=== PATIENT | male | born 1985 | race Caucasian/White ===

== ENCOUNTER 2019-12-02 09:44 | Emergency (ER) | payer BC ==
--- NOTE | 2019-12-02 09:59 | ED ---
Syncope/Near Syncope - HPI Summary HPI Summary: 34-year-old male with a significant past medical history of gastric sleeve presents to emergency department today complaining of a witnessed syncopal episode this morning. Patient states he was sitting in a meeting at work when he stood up to go the bathroom and felt lightheaded and "sweaty" and then syncopized. Patient states he recalls the event but endorses loss of consciousness. Patient fell from standing and sustained a 2 cm laceration superior to the orbit while falling After hitting it on a chalkboard. Patient currently feels well and denies any headache, neck pain, changes in vision, neurological deficit, chest pain, abdominal pain, pain with urination, feelings of anxiety. Patient endorses having "a few drinks last night" but denies recreational drug use or smoking. Family history and social history noncontributory. Bystanders state patient returned to normal mental state approximately 10 minutes after waking. Patient denies incontinence or tongue biting. 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 Onset/Duration: Sudden Onset Context: Witnessed Activity At Onset: Exertion Associated Head Trauma: Yes Alleviating Factor(s): Spontaneous Resolution Associated Signs And Symptoms: Head Trauma (Recent), Headache - Allergies/Home Medications Allergies/Adverse Reactions: Allergies Allergy/AdvReac Type Severity Reaction Status Date / Time No Known Allergies Allergy Verified 12/02/19 09:57 Home Medications: Home Medications Omeprazole 20 mg PO DAILY 12/02/19 [History Confirmed 12/02/19] PMH/Surg Hx/FS Hx/Imm Hx Endocrine/Hematology History: Denies: Hx Anticoagulant Therapy Cardiovascular History: Reports: Hx Syncope Denies: Hx Pacemaker/ICD History: Denies: Hx Chronic Renal Failure, Hx Dialysis Infectious Disease History: No Infectious Disease History: Denies: Traveled Outside the [place] in Last 30 Days Review of Systems Constitutional: Negative Eyes: Negative ENT: Negative Cardiovascular: Negative Respiratory: Negative Gastrointestinal: Negative Genitourinary: Negative Musculoskeletal: Negative Negative: Decreased ROM Skin: Negative Positive: Headache - 2/10, Syncope Psychological: Normal All Other Systems Reviewed And Are Negative: Yes Physical Exam Triage Information Reviewed: Yes Vital Signs On Initial Exam: Initial Vitals Temp Pulse Resp BP Pulse Ox 98.6 F 89 15 118/78 98 12/02/19 09:53 12/02/19 09:53 12/02/19 09:53 12/02/19 09:53 12/02/19 09:53 Vital Signs Reviewed: Yes Appearance: Positive: Well-Appearing, No Pain Distress, Well-Nourished Skin: Positive: Warm, Skin Color Reflects Adequate Perfusion Eyes: Positive: EOMI, LEXII ENT: Positive: Hearing grossly normal Respiratory/Lung Sounds: Positive: Clear to Auscultation, Breath Sounds Present Cardiovascular: Positive: RRR, S1, S2 Abdomen Description: Positive: Soft Bowel Sounds: Positive: Present Musculoskeletal: Positive: Strength/ROM Intact Neurological: Positive: Sensory/Motor Intact, Alert, Oriented to Person Place, Time, Normal Gait, Finger to Nose, Facial Symmetry, Speech Normal. Negative: Cerebellar Dysfunction, Pronator Drift Present Psychiatric: Positive: Normal AVPU Assessment: Alert Procedures - Sedation Patient Received Moderate/Deep Sedation with Procedure: No - Laceration/Wound Repair 1 Location: face Description: Linear Betadine Prep?: No Laceration/Wound Explored: clean, no foreign body removed Closure: Skin Adhesive, SteriStrips Debridement: none Layer Closure?: No Sterile Dressing Applied?: No Diagnostics - Vital Signs Vital Signs Temp Pulse Resp BP Pulse Ox 12/02/19 09:53 98.6 F 89 15 118/78 98 - Laboratory Result Diagrams: 12/02/19 10:20 12/02/19 10:20 Lab Statement: Any lab studies that have been ordered have been reviewed, and results considered in the medical decision making process. Course/Dx Course Of Treatment: Patient was evaluated in the emergency department today for syncopal episode. His vital signs are noted and stable. An EKG was done promptly which showed normal sinus rhythm at a rate of 91 bpm. No evidence of STEMI. Normal intervals, no evidence of WPW or Brugada. A bedside fingerstick glucose was 79 and the patient was given by mouth replacement with food. Patients 2 cm in length and 2 mm in depth laceration superior to his orbit was approximated after cleaning with 20 cc of normal saline and use of Dermabond skin glue and Steri-Strips. Laboratory studies returned unremarkable with no evidence of leukocytosis or anemia. Troponin is 0.00. Orthostatics were done which were within normal limits. Repeat blood glucose prior to discharge was 104. Patient had no evidence of seizure or other significant cause for his syncope. Likely causes syncope was hypoglycemia or vasovagal syncope. Patient is follow-up with his primary care provider for further evaluation and management. - Diagnoses Differential Diagnosis/HQI/PQRI: Positive: Hypoglycemia, Metabolic Reaction, Seizure, Vasovagal Episode Provider Diagnoses: Syncope, Facial laceration, Hypoglycemia Discharge ED - Sign-Out/Discharge Documenting (check all that apply): Patient Departure - Discharge Plan Condition: Stable Disposition: HOME Patient Education Materials: Syncope (ED) Forms: *Work Release Referrals: No Primary Care Phys,NOPCP [Primary Care Provider] - Additional Instructions: You were seen in the emergency department today due to a syncopal episode this morning. Blood work was done and showed no evidence of acute abnormality requiring intervention at this time. We discussed how the risks of CT imaging of your head outweighed the benefits at this time however, please return to emergency department immediately if you develop any new or worsening symptoms. Please follow up with your primary care physician in 5 days for further evaluation and management in regards to syncope and hypoglycemia. The laceration was closed using skin glue and Steri-Strips. These things will resolve/fall off on their own; in the meantime please keep your laceration dry for 24 hours and then gently rinse it with soapy water and pat dry until healed. - Billing Disposition and Condition Condition: STABLE Disposition: Home - Attestation Statements Provider Attestation: I was available for consult. This patient was seen by the GUSTAVO. The patient was not presented to, seen by, or examined by me. Gabo Calhoun MD
[2019-12-02 10:28] LABS: ABS Lymphocytes 0.8 10^3/ul (1.0-4.8); ABS Monocytes 0.6 10^3/ul (0-0.8); ABS Neutrophils 8.5 10^3/ul (1.5-7.7); Eosinophil % 0.2 %; Hematocrit 45 % (42-52); Hemoglobin 15.7 g/dL (14.0-18.0); Lymphocyte % 7.9 %; Mean Corpuscular HGB Conc 35 g/dL (31-36); Mean Corpuscular Hemoglobin 33 pg (27-31); Mean Corpuscular Volume 96 fL (80-94); Mean Platelet Volume 7.2 fL (7.4-10.4); Platelet Count 280 10^3/uL (150-450); Red Blood Count 4.68 10^6 /uL (4.18-5.48); Red Cell Distribution Width 13 % (10-15); White Blood Count 9.9 10^3/uL (3.5-10.8)
[2019-12-02 10:43] LABS: Albumin 4.3 g/dL (3.2-5.2); Albumin/Globulin Ratio 1.5 (1-3); BUN/Creatinine Ratio 15.9 (8-20); Calcium 9.5 mg/dL (8.6-10.3); EGFR African American 128.6 (>60); EGFR Non-African American 106.3 (>60); Globulin 2.8 g/dL (2-4); Potassium 4.2 mmol/L (3.5-5.0); Total Bilirubin 0.4 mg/dL (0.2-1.0); Total Protein 7.1 g/dL (6.4-8.9)
[2019-12-02 11:41] LABS: TSH (Thyroid Stimulating Horm) 2.15 mcIU/mL (0.34-5.60)
[2019-12-02 11:58] LABS: Urine Appearance Clear; Urine Bilirubin Negative (Negative); Urine Blood 1+ (Negative); Urine Color Yellow; Urine Glucose Negative (Negative); Urine Ketones Negative (Negative); Urine Nitrite Negative (Negative); Urine Protein Negative (Negative); Urine Specific Gravity 1.021 (1.010-1.030); Urine Urobilinogen Negative (Negative)
[2019-12-02 12:02] LABS: Urine Bacteria Absent (Absent); Urine Red Blood Cell 1+(3-5/hpf) (Absent); Urine Squamous Epithelial Cell Present (Absent); Urine White Blood Cell Trace(0-5/hpf) (Absent)
[2019-12-02] MEDS ORDERED: Ibuprofen TAB* 400 MG PO ONE (13:05)
[2019-12-02 13:16] VITALS: BP 130/81
== END 2019-12-02 13:22 | disposition home or self-care (01) ==
LOC: ED 09:44
DX: S01.81XA Laceration without foreign body of other part of head, initial encounter (principal); W18.09XA Striking against other object with subsequent fall, initial encounter; Y93.89 Activity, other specified; Y92.9 Unspecified place or not applicable; Y99.0 Civilian activity done for income or pay; R55 Syncope and collapse; R51 Headache; E16.2 Hypoglycemia, unspecified; Z98.84 Bariatric surgery status
CPT/HCPCS: 12011; 36415; 80053; 80320; 81003; 81015; 83605; 83735; 84443; 84484; 85025; 87086; 93005; 99284; A9270-GY; G0480